=== PATIENT | female | born 1965 | race Two or more races ===

== ENCOUNTER 2021-03-12 17:40 | Inpatient (IN) | payer BC, OTHER ==
[~2021-03-12] VITALS: Ht 167.6 cm; Wt 62.1 kg
--- NOTE | 2021-03-12 10:35 | NUR ---
MS ADMISSION NOTES RECEIVED REPORT FROM [facility] IN ER. PATIENT CAME UP AT THIS TIME VIA GURNEY. PATIENT AMBULATORY. NO S/S OF DISTRESS. NOT COMPLAINING OF ANY PAIN AT THE MOMENT. A/OX4. RIGHT AC #20 IV LINE RUNNING D5 1/2 NS @125ML/HR STARTED IN THE ER. SKIN INTACT. V/S FOLLOWS: BP-123/66, T-98, P-66, O2 SAT-98% ROOM AIR, RR-20. WT- [address]: BED IN LOWEST, LOCKED POSITION, CALL LIGHT WITHIN REACH. WILL CONTINUE TO MONITOR.
--- NOTE | 2021-03-12 17:50 | NUR ---
THE PATIENT BIBS FOR C/O LLQ ABD PAIN X 3 DAYS. RATES PAIN 5/10. RESPIRATION REGULAR AND UNLABORED. ABDOMEN SOFT AND NON-DISTENDED. WILL CONTINUE TO MONITOR THE PATIENT.
[2021-03-12] MEDS ORDERED: IV NS 0.9% 1,000 ML BAG IV ONE (18:00)
[2021-03-12 18:07] LABS: BILIRUBIN,URINE NEGATIVE (NEGATIVE); COLOR,URINE YELLOW (YELLOW); LEUKOCYTE ESTERASE ,URINE SMALL (NEGATIVE); NITRITE, URINE NEGATIVE (NEGATIVE); PROTEIN,URINE NEGATIVE (NEGATIVE); UGLUCOSE NEGATIVE (NEGATIVE); UROBILINOGEN,URINE 0.2 EU/dL (0.2)
[2021-03-12 18:12] LABS: RBC,URINE 0-2 /HPF (0-2)
[2021-03-12 18:13] LABS: BACTERIA,URINE RARE /HPF (None Seen); SQUAMOUS EPITHELIAL CELL,UR 0-2 /HPF (None Seen)
[2021-03-12 18:22] LABS: BASOPHILS # (AUTO) 0.1 /CMM (0.0-0.2); BASOPHILS % (AUTO) 0.5 % (0.0-2.0); EOSINOPHILS % (AUTO) 0.6 % (0.0-6.0); HEMATOCRIT 40 % (33-45); HEMOGLOBIN 13.2 g/dL (11.5-14.8); LYMPHOCYTES # (AUTO) 1.6 /CMM (0.8-4.8); LYMPHOCYTES % (AUTO) 15.2 % (20.0-44.0); MEAN CORPUSCULAR HGB CONC 33 g/dl (31.0-36.0); MEAN CORPUSCULAR VOLUME 89 fL (82-100); MONOCYTES % (AUTO) 9.1 % (2.0-12.0); NEUTROPHILS # (AUTO) 7.9 /CMM (1.8-8.9); NEUTROPHILS % (AUTO) 74.6 % (43.0-81.0); PLATELET COUNT (AUTO) 298 /CMM (150-450); RED BLOOD CELL COUNT(AUTO) 4.47 MIL/uL (4.0-5.2); WHITE BLOOD COUNT (AUTO) 10.6 K/uL (4.3-11.0)
[2021-03-12 18:53] LABS: CALCIUM, SERUM 8.9 mg/dL (8.5-10.1); CREATININE 0.7 mg/dL (0.6-1.3); POTASSIUM 3.8 mmol/L (3.5-5.1)
[2021-03-12] MEDS ORDERED: IOHEXOL-300 100 ML VIAL IV ONE (18:57)
[2021-03-12 19:00] LABS: ALBUMIN 3.5 g/dL (3.4-5.0); BILIRUBIN,DIRECT 0.1 mg/dL (0.0-0.2); BILIRUBIN,TOTAL 0.4 mg/dL (0.2-1.0); TOTAL PROTEIN, SERUM 7.3 g/dL (6.4-8.2)
--- NOTE | 2021-03-12 20:55 | NUR ---
CALLED FOR COVID SWAB
[2021-03-12] MEDS ORDERED: MEROPENEM 1,000 MG in IV NS 0.9% 100 ML IV ONE (21:00)
--- NOTE | 2021-03-12 21:08 | NUR ---
COVID SWABBED, SENT TO LAB
[2021-03-12] MEDS ORDERED: MEROPENEM 1 G VIAL IV ONE (21:20)
--- NOTE | 2021-03-12 21:56 | NUR ---
BED ASSIGNMENT: 307-2
[2021-03-12] MEDS ORDERED: IV D5/0.45 NACL 1,000 ML IV ONE (22:00)
--- NOTE | 2021-03-12 22:10 | NUR ---
REPORT GIVEN TO CEL[facility] FOR [facility].
[2021-03-12] MEDS ORDERED: Z GUARD REMEDY 2 OZ OINT TP PRN (22:30)
[2021-03-12] MEDS ORDERED: MORPHINE SULFATE INJ 2 MG/ML DISP.SYRIN IV PRN (22:30)
[2021-03-12] MEDS ORDERED: MAGNESIUM HYDROXIDE 30 ML UDC PO PRN (22:30)
[2021-03-12] MEDS ORDERED: MAG HYDROX/AL HYDROX/SIMETH 30 ML UDC PO PRN (22:30)
[2021-03-12] MEDS ORDERED: IV NS 0.9% 1,000 ML IV PRN (22:30)
[2021-03-12] MEDS ORDERED: LORAZEPAM INJ 2 MG/ML VIAL IV PRN (22:30)
[2021-03-12] MEDS ORDERED: ONDANSETRON HCL/PF 4 MG/2 ML VIAL IVP PRN (22:30)
[2021-03-12 22:35] VITALS: BP 122/66
[2021-03-12 23:22] VITALS: BP 122/66
--- NOTE | 2021-03-12 23:35 | NUR ---
MS ADMISSION NOTES GOT REPORT FROM [facility]. PATIENT BROUGHT IN VIA GURNEY. A/OX4. NO S/S OF DISTRESS. NO C/O PAIN AT THE MOMENT. AMBULATORY. R. AC RUNNING D5 1/2 NS @125ML/HR STARTED IN THE ER. PATIENT VS IS FOLLOWS: 1BP- 123/66, P-66 BPM, T-98, O2 SAT- 98% ROOM AIR. RR-20. PATIENT NPO AND SCHEDULED FOR SURGERY TOMORROW. WILL ENDORSE TO MORNING SHIFT RN.
[2021-03-13] MEDS ORDERED: MEROPENEM 1 G VIAL IV ONE (03:56)
[2021-03-13] MEDS ORDERED: MEROPENEM 1 G in IV NS 0.9% 100 ML IV SCH (05:00)
[2021-03-13 05:55] LABS: BASOPHILS % (AUTO) 0.3 % (0.0-2.0); HEMATOCRIT 37 % (33-45); HEMOGLOBIN 12.3 g/dL (11.5-14.8); LYMPHOCYTES # (AUTO) 1.4 /CMM (0.8-4.8); MEAN CORPUSCULAR HGB CONC 33 g/dl (31.0-36.0); MEAN CORPUSCULAR VOLUME 90 fL (82-100); MONOCYTES # (AUTO) 0.9 /CMM (0.1-1.30); MONOCYTES % (AUTO) 9.8 % (2.0-12.0); NEUTROPHILS # (AUTO) 7.2 /CMM (1.8-8.9); NEUTROPHILS % (AUTO) 74.9 % (43.0-81.0); PLATELET COUNT (AUTO) 271 /CMM (150-450); RED BLOOD CELL COUNT(AUTO) 4.14 MIL/uL (4.0-5.2); WHITE BLOOD COUNT (AUTO) 9.6 K/uL (4.3-11.0)
[2021-03-13 06:21] LABS: CALCIUM, SERUM 8.7 mg/dL (8.5-10.1); CREATININE 0.6 mg/dL (0.6-1.3); MAGNESIUM 2.2 mg/dL (1.8-2.4); PHOSPHORUS 3.7 mg/dL (2.5-4.9); POTASSIUM 3.8 mmol/L (3.5-5.1)
[2021-03-13 06:38] LABS: THYROID STIMULATING HORMONE 1.028 uIU/mL (0.358-3.74)
--- NOTE | 2021-03-13 06:41 | NUR ---
MS RN NOTES CONSENT SIGNED AND WITNESSED. CHECKLIST DONE. ALL IN THE CHART.
--- NOTE | 2021-03-13 06:42 | NUR ---
MS RN CLOSING PATIENT LYING IN BED. TALKING TO SOMEONE ON THE PHONE. A/OX4. PATIENT ABLE TO MAKE NEEDS KNOWN. ALL NEEDS ATTENDED. NO S/S OF DISTRESS. NO C/O PAIN ELIZABETH. R. AC RUNNING NS @75 MLS/HR. AMBULATING TO THE RESTROOM. BEEN NPO SINCE ADMISSION. ALL SCHED MEDS ADMINISTERED. PATIENT SCHEDULED FOR SURGERY THIS AM, WILL ENDORSE TO MORNING SHIFT NURSE.
[2021-03-13] MEDS: ACETAMINOPHEN 325 MG TABLET PO PRN ×4 (07:24→22:05)
--- NOTE | 2021-03-13 07:30 | NUR ---
MS RN CLOSING RECEIVED PATIENT IN BED. AWAKE, ALERT AND ORIENTED X4. ABLE TO MAKE NEEDS KNOWN. ON ROOM AIR. NO S/S OF DISTRESS. COMPLAINED OF HEADACHE AND WANTED SOMETHING FOR THE HEADACHE. IV ACCESS ON RIGHT AC RUNNING NS @75 MLS/HR. AMBULATING TO THE RESTROOM. BEEN NPO SINCE ADMISSION. PATIENT SCHEDULED FOR LAPAROSCOPIC APPENDECTOMY AT 8AM. PM SHIFT RN ENDORSED THAT CHECKLIST WERE COMPLETED AND CONSENTS WERE SIGNED. SAFETY PRECAUTIONS IN PLACED. BED LOCKED ON THE LOWEST POSITION, SIDE RAILS UPX2, CALL LIGHT WITHIN REACH. WILL CONTINUE TO MONITOR PATIENT. Addendum: 03/13/21 at 0809 by RUSSEL DENSON RN ERROR.
[2021-03-13] MEDS ORDERED: ANESTHESIA TRAY IN PYXIS 1 EA TRAY MC ONE (07:35)
[2021-03-13] MEDS ORDERED: BUPIVACAINE MPF 0.5% W/EPI INJ 30 ML VIAL ONE (07:35)
[2021-03-13] MEDS ORDERED: MULT-447 PO (07:42)
[2021-03-13] MEDS ORDERED: FENTANYL PF 100MCG/2ML AMPUL ONE (07:45)
[2021-03-13] MEDS ORDERED: ROCURONIUM BROMIDE 50 MG/5 ML ONE (07:45)
--- NOTE | 2021-03-13 07:45 | NUR ---
MS/RN NOTES OR-RN EAR PICKED UP PATIENT FOR SURGERY. ENDORSED PATIENT'S CHART TO OR/RN. CHECKLIST COMPLETED AND CONSENTS WERE SIGNED. V/S TAKEN AND RECORDED. PATIENT IS ALERT AND ORIENTEDX4, ABLE TO MAKE NEEDS KNOWN. NO DISTRESS AND IN ROOM AIR.
[2021-03-13 08:00] VITALS: BP 119/61
[2021-03-13] MEDS ORDERED: ENOXAPARIN SODIUM 40 MG/0.4 ML DISP.SYRIN SQ SCH (09:00)
--- NOTE | 2021-03-13 10:00 | NUR ---
MS/RN NOTES PATIENT CAME BACK FROM SURGERY. RECEIVED ENDORSEMENT FROM [facility] (OR/RN). PATIENT IS ALERT AND ORIENTED X4, LITTLE DROWSINESS NOTED. STABLE ON ROOM AIR WITH O2 SAT OF 97%. LAPAROSCOPIC APPENDECTOMY DONE AND COMPLETED BY DR. PALM. PATIENT IS STABLE WITH THE FF VITAL SIGNS 123/72, HR-71, RR-18, T- 98.5. NO DISCOMFORTS NOTED AT THIS TIME. ALL MEDS TO CONTINUE EXCEPT LOVENOX INJECTION. ON REGULAR DIET. ACTIVITY OUT OF BED TOLERATED. CLEAR FOR DISCHARGE HOME TODAY WHEN CRITERIAS ARE MET. WILL CONTINUE TO MONITOR PATIENT.
[2021-03-13] MEDS: MEROPENEM 1 G in IV NS 0.9% 100 ML IV SCH ×3 (10:20→20:46)
[2021-03-13] MEDS: PANTOPRAZOLE 40 MG VIAL IV SCH (10:24)
[2021-03-13 16:00] VITALS: BP 120/71
--- NOTE | 2021-03-13 18:59 | NUR ---
MS/RN CLOSING NOTES PATIENT IS IN BED. AWAKE, ALERT AND ORIENTED X4. ABLE TO MAKE NEEDS KNOWN. ON ROOM AIR. NO S/S OF DISTRESS. IV ACCESS ON RIGHT AC RUNNING NS @75 MLS/HR. AMBULATING TO THE RESTROOM. S/P LAPAROSCOPIC APPENDECTOMY. ON REGULAR DIET AND OUT OF BED ACTIVITY TOLERATED. ALL NEEDS ARE MET. SAFETY PRECAUTIONS IN PLACED. BED LOCKED ON THE LOWEST POSITION, SIDE RAILS UPX2, CALL LIGHT WITHIN REACH. WILL ENDORSE TO THE NEXT SHIFT FOR CONTINUITY OF CARE.
--- NOTE | 2021-03-13 19:57 | NUR ---
RN OPENING NOTES: RECEIVED RESIDENT AWAKE IN BED, A/OX4,AMBULATORY WITH SUPERVISION, NO COMPLAIN OF PAIN AND DISCOMFORT, S/P LAP APPENDECTOMY, SURGICAL SITE COVERED CLEAN AND DRY. WITH R AC #20 AND NSS@75ML/HR INFUSING WELL, SKIN IS INTACT, NO BLEEDING ON THE SURGICAL SITE, KEPT CLEAN AND DRY, WILL CONTINUE TO MONITOR.
[2021-03-13 20:00] VITALS: BP 104/67
--- NOTE | 2021-03-13 21:46 | NUR ---
RN NOTES: PATIENT HAS MEROFENEM 1GM IV Q8H WHICH WAS SUPPOSED TO BE DUE DUE AT 2100 LAST DOSE WAS 1542 WITH OVER 5 HOUR INTERVAL, CALLED PHARMACY SPOKE TO IKE AND ADJUST THE TIME TO 0000 03/14 TO COMPLETE THE 8 HOURS INTERVAL: 2100 DOSE WAS THEN DEFER AND TO BE GIVEN AT 12MN
[2021-03-14] MEDS: MEROPENEM 1 G in IV NS 0.9% 100 ML IV SCH ×2 (00:17→08:28)
[2021-03-14 06:00] LABS: BASOPHILS # (AUTO) 0.1 /CMM (0.0-0.2); BASOPHILS % (AUTO) 0.4 % (0.0-2.0); EOSINOPHILS % (AUTO) 0.1 % (0.0-6.0); HEMATOCRIT 39 % (33-45); LYMPHOCYTES # (AUTO) 1.8 /CMM (0.8-4.8); LYMPHOCYTES % (AUTO) 9.6 % (20.0-44.0); MEAN CORPUSCULAR HGB CONC 33 g/dl (31.0-36.0); MEAN CORPUSCULAR VOLUME 89 fL (82-100); MONOCYTES # (AUTO) 1.2 /CMM (0.1-1.30); MONOCYTES % (AUTO) 6.7 % (2.0-12.0); NEUTROPHILS # (AUTO) 15.3 /CMM (1.8-8.9); NEUTROPHILS % (AUTO) 83.2 % (43.0-81.0); PLATELET COUNT (AUTO) 350 /CMM (150-450); RED BLOOD CELL COUNT(AUTO) 4.37 MIL/uL (4.0-5.2); WHITE BLOOD COUNT (AUTO) 18.4 K/uL (4.3-11.0)
[2021-03-14 06:11] LABS: CALCIUM, SERUM 9.4 mg/dL (8.5-10.1); CREATININE 0.6 mg/dL (0.6-1.3); MAGNESIUM 2.4 mg/dL (1.8-2.4); PHOSPHORUS 3.8 mg/dL (2.5-4.9)
--- NOTE | 2021-03-14 06:53 | NUR ---
MS RN CLOSING NOTE: PATIENT AWAKE IN BED, ALERT AND ORIENTED, BED IN LOW POSITIO,CALL LIGHTS WITHIN REACH,NO COMPLAIN OF PAIN AND DISCOMFORT AT THIS TIME, WITH IV LINE AT L WRIST #20 PATENT AND WITH 0.9 NSS@75ML PER HOUR, PATIENT HAS HX OF LAPROSCOPIC APPENDECTOMY WITH BANDEDS COVER IN LOWER ABDOMINAL AREA, AMBULATE WITH SUPERVISION, ALL NEEDS MET, KEPT CLEAN AND DRY, ENDORSE .
--- NOTE | 2021-03-14 07:30 | NUR ---
MS RN OPENING NOTES PATIENT SLEEPING IN BED.ALERT AND ORIENTED X 4. BREATHING IS EVEN AND UNLABORED, NO SIGNS OF RESPIRATORY DISTRESS NOTED. IV ACCESS INTACT L WRIST #20 FLUSHING WELL,. SAFETY MEASURES ARE IN PLACE, BED LOCKED AND PLACED IN LOW POSITION, SIDE RAILS UP X 2, CALL LIGHT WITHIN REACH. WILL CONTINUE TO MONITOR THROUGHOUT SHIFT.
[2021-03-14 08:00] VITALS: BP 104/62
[2021-03-14] MEDS: PANTOPRAZOLE 40 MG VIAL IV SCH (08:17)
[2021-03-14] MEDS ORDERED: LEVO500T90 PO (12:19)
--- NOTE | 2021-03-14 14:21 | NUR ---
PROBATE LAWYER NOTE PT DISCHARGED AND LEFT HOSPITAL AT 1421 IN STABLE CONDITION. IV SITE SAFELY REMOVED AND LINES CLEANED UP. ALL BELONGINGS ACCOUNTED FOR, DISCHARGE FORM SIGNED AND REVIEWED WITH PATIENT. PRESCPTIONS EXPLAINED TO PATIENT HOW TO OBTAIN THEM. PATIENT ESCORTED DOWN TO LOBBY WITH EDWARD HARTLEY.
== END 2021-03-14 14:25 | disposition home or self-care (01) | DRG 233 ==
LOC: ER 17:44 → MED 22:01
PROVIDERS: ADMIT Nurse Practitioner Acute Care; ATTEND Registered Nurse
PROC: 0DTJ4ZZ Resection of Appendix, Percutaneous Endoscopic Approach (ICD-10-PCS; principal; 2021-03-13)
DX: K35.30 Acute appendicitis with localized peritonitis, without perforation or gangrene (principal); N39.0 Urinary tract infection, site not specified; R73.9 Hyperglycemia, unspecified; Z88.0 Allergy status to penicillin; Z20.822 Contact with and (suspected) exposure to COVID-19; D72.829 Elevated white blood cell count, unspecified
CPT/HCPCS: 36415; 71045-TC; 80048-TC; 80061-TC; 80076-TC; 81001; 83690-TC; 83735-TC; 84100-TC; 84443-TC; 85025-TC; 85730-TC; 87081-TC; 87086-TC; 88304-TC; C9113; C9803; G0378; J0690; J2185; J2270; J2704; J3010; J3490; J7030; Q9967